=== PATIENT | female | born 1975 ===

== ENCOUNTER 2018-12-14 08:28 | Outpatient (RCR) | payer OTHER ==
[2018-11-22 08:34] VITALS: BP 120/75
--- NOTE | 2018-11-22 13:01 | ONCOLOGY CONSULTATION ---
EVENT DATE: November 22, 2018 REFERRING PHYSICIAN EUGENIE Bah REASON FOR CONSULTATION Evaluation and management of abnormal iron studies HEMATOLOGY HISTORY Patient is a 43-year old female who is healthy except for hypothyroidism, on supplement. Patient, during her evaluation by her primary care physician, stated that she had low iron in the past so iron studies were requested on November 05, 2018, and showed serum iron high at 266, transferrin 247. TIBC was normal at 345.8. Iron saturation was high at 76.9%. Serum ferritin was 44. The patient was referred for further evaluation of her abnormal iron studies. Patient denies any heavy menses. As per patient, she has like three times per year maybe her periods will get heavy but other than that it is regular and normal with five to seven days of bleeding during her periods. PAST MEDICAL HISTORY Hypothyroidism. PAST SURGICAL HISTORY Orthopedic surgeries. FAMILY HISTORY Father had lymphoma but no history of hemochromatosis in her family. SOCIAL HISTORY Patient is not but she lives with her significant other. She does not have any children. 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 She drinks about five times per week, one glass of wine. Denies abuse of tobacco or illicit drugs. CURRENT MEDICATIONS Synthroid 100 mg daily. ALLERGIES No known drug allergies. REVIEW OF SYSTEMS CONSTITUTIONAL: No appetite or weight change. No fever, chills or sweating. No recent infection. HEENT: Ears: No tinnitus or hearing problem. Nose: No nasal discharge or epistaxis. Throat: No sore throat or mouth ulcers. Eyes: No diplopia or visual changes. RESPIRATORY: No shortness of breath. No cough, expectoration or hemoptysis. CARDIOVASCULAR: No chest pain, orthopnea, or paroxysmal nocturnal dyspnea (PND). No edema. No palpitations. GASTROINTESTINAL: No nausea or vomiting. No diarrhea or constipation. No change in bowel movements. No heartburn or swallowing difficulties. No abdominal pain. No jaundice. No hematemesis, melena or rectal bleeding. GENITOURINARY: Patient has had heavy periods for years, and she has been seen by a billing spec, and she was offered uterine ablation, but the patient refused the procedure. As per patient, she has had heavy periods for a total of seven days every month. MUSCULOSKELETAL: No pain in the muscles, joints or bones. NEUROLOGICAL: She has some numbness in her fingers occasionally. HEMATOLOGIC/LYMPHATIC: No bleeding or easy bruising. No weakness or fatigue. No enlarged lymph nodes. SKIN: No skin rash or lumps. PSYCHIATRIC: No anxiety or depression. PHYSICAL EXAMINATION GENERAL: Looks stable. Well-developed, well-nourished, and in no acute distress. VITAL SIGNS: Blood pressure 120/75, pulse 64 per minute, respirations 16 per minute, temperature 97, pulse ox 98% on room air. HEENT: Head: Atraumatic. No sinus tenderness to palpation. Eyes: No icterus or conjunctivitis. Mouth and Throat: No oral thrush or mucositis. NECK: Supple. No cervical or supraclavicular lymphadenopathy. LUNGS: Clear to auscultation and percussion bilaterally. HEART: Regular rate and rhythm. No gallops, murmurs, clicks or rubs. ABDOMEN: Soft and lax. No tenderness. No hepatosplenomegaly. No masses. EXTREMITIES: No cyanosis, clubbing or edema. LYMPHATICS: No peripheral lymphadenopathy. NEUROLOGICAL: Conscious, alert and oriented x3. No focal motor or sensory deficits. PSYCHIATRIC: Mood and affect appear normal. SKIN: No skin rash, bruise or purpuric eruption. IMPRESSION 1. Abnormal iron studies with high serum iron at 266 and high iron saturation at 76.9% with normal transferrin at 247 and normal TIBC at 345.8 and normal serum ferritin at 44. Her iron studies contradict each other so for this reason I am planning to repeat her CBC and iron studies with ferritin and I am planning also to check genetic testing for hemochromatosis. I am planning to see the patient in a week from now after the results of those tests to decide about further evaluation and management. If the patient is proved to have hemochromatosis, I am planning to treat her with phlebotomies to maintain her ferritin less than 100 and/or iron saturation than 60%. 2. Hypothyroidism, on Synthroid 100 mcg daily. PLAN 1. CBC. 2. Iron studies with ferritin. 3. Genetic testing for hemochromatosis. 4. Patient to return in one week for further evaluation and management. 5. Patient to contact us for any new concerns or complaints. [facility]
[2018-12-05 08:32] VITALS: BP 106/73
[2018-12-05 08:44] LABS: PLATELET COUNT, AUTOMATED 235 K/uL (150-450)
[~2018-12-14 08:28] MED LIST: LEVO100T95 PO
[2018-12-14 08:38] VITALS: BP 118/74
--- NOTE | 2018-12-14 09:27 | [facility] ONCOLOGY NOTE ---
EVENT DATE: December 14, 2018 DIAGNOSIS Abnormal iron studies. CHIEF COMPLAINT Patient is here today for followup of her iron studies abnormality. HEMATOLOGY HISTORY Patient is a 43-year old female who is healthy except for hypothyroidism, on supplement. Patient, during her evaluation by her primary care physician, stated that she had low iron in the past so iron studies were requested on November 05, 2018, and showed serum iron high at 266, transferrin 247. TIBC was normal at 345.8. Iron saturation was high at 76.9%. Serum ferritin was 44. The patient was referred for further evaluation of her abnormal iron studies. Patient denies any heavy menses. As per patient, she has like three times per year maybe her periods will get heavy but other than that it is regular and normal with five to seven days of bleeding during her periods. Repeat iron studies all came back within the normal range and genetic testing for hemochromatosis came back negative. HISTORY OF PRESENT ILLNESS Patient is here today to discuss the results of her iron studies and genetic testing for hemochromatosis. She is complaining of some pain in the shoulders. She has some numbness in the hands, especially with exposure to cold, but other than that she is really doing very well. PAST MEDICAL HISTORY Hypothyroidism. PAST SURGICAL HISTORY Orthopedic surgeries. FAMILY HISTORY Father had lymphoma but no history of hemochromatosis in her family. SOCIAL HISTORY Patient is not but she lives with her significant other. She does not have any children. 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 She drinks about five times per week, one glass of wine. Denies abuse of tobacco or illicit drugs. CURRENT MEDICATIONS Synthroid 100 mg daily. ALLERGIES No known drug allergies. REVIEW OF SYSTEMS CONSTITUTIONAL: No appetite or weight change. No fever, chills or sweating. No recent infection. HEENT: Ears: No tinnitus or hearing problem. Nose: No nasal discharge or epistaxis. Throat: No sore throat or mouth ulcers. Eyes: No diplopia or visual changes. RESPIRATORY: No shortness of breath. No cough, expectoration or hemoptysis. CARDIOVASCULAR: No chest pain, orthopnea, or paroxysmal nocturnal dyspnea (PND). No edema. No palpitations. GASTROINTESTINAL: No nausea or vomiting. No diarrhea or constipation. No change in bowel movements. No heartburn or swallowing difficulties. No abdominal pain. No jaundice. No hematemesis, melena or rectal bleeding. GENITOURINARY: Patient has had heavy periods for years, and she has been seen by a potato sorter, and she was offered uterine ablation, but the patient refused the procedure. As per patient, she has had heavy periods for a total of seven days every month. MUSCULOSKELETAL: She has pain in the shoulder. NEUROLOGICAL: She has numbness in the hands and fingers on exposure to cold. HEMATOLOGIC/LYMPHATIC: No bleeding or easy bruising. No weakness or fatigue. No enlarged lymph nodes. SKIN: No skin rash or lumps. PSYCHIATRIC: No anxiety or depression. PHYSICAL EXAMINATION GENERAL: Looks stable. Well-developed, well-nourished, and in no acute distress. VITAL SIGNS: Blood pressure 118/74, pulse 80 per minute, respirations 16 per minute, temperature 98.5, pulse ox 95% on room air. HEENT: Head: Atraumatic. No sinus tenderness to palpation. Eyes: No icterus or conjunctivitis. Mouth and Throat: No oral thrush or mucositis. NECK: Supple. No cervical or supraclavicular lymphadenopathy. LUNGS: Clear to auscultation and percussion bilaterally. HEART: Regular rate and rhythm. No gallops, murmurs, clicks or rubs. ABDOMEN: Soft and lax. No tenderness. No hepatosplenomegaly. No masses. EXTREMITIES: No cyanosis, clubbing or edema. LYMPHATICS: No peripheral lymphadenopathy. NEUROLOGICAL: Conscious, alert and oriented x3. No focal motor or sensory deficits. PSYCHIATRIC: Mood and affect appear normal. SKIN: No skin rash, bruise or purpuric eruption. DIAGNOSTIC DATA CBC showed white count 4.8, hemoglobin 15.1, hematocrit 44.8, platelets 235,000. Serum iron is normal at 98. TIBC normal at 332. Iron saturation is normal at 29.5% and serum ferritin is low normal at 23. Genetic testing for hemochromatosis came back negative. IMPRESSION 1. Abnormal iron studies with high serum iron at 266 and high iron saturation at 76.9% with normal transferrin at 247 and normal TIBC at 345.8 and normal serum ferritin at 44. Repeat iron studies showed that her ferritin is 23 but her iron saturation currently is 29.5%. Serum iron was normal at 98. Genetic testing for hemochromatosis was negative. I believe the iron studies may be there was a lab error. I assured the patient and patient will come on a p.r.n. basis if she would have any hematological problem in the future. She will continue followup with her primary care provider. 2. Hypothyroidism, on Synthroid 100 mcg daily. PLAN 1. Patient to continue followup with her primary care provider. 2. Patient does not have any evidence of iron overload and her genetic testing for hemochromatosis came back negative. 3. Patient to contact us for any new concerns or complaints. [facility]
== END 2019-02-20 ==
LOC: ONC 08:28
PROVIDERS: ATTEND Internal Medicine Hematology
DX: R79.0 Abnormal level of blood mineral (principal); E03.9 Hypothyroidism, unspecified
CPT/HCPCS: 36415; 81256; 82728; 83540; 83550; 85025; 99202; 99212